=== PATIENT | female | born 1985 | race Caucasian/White ===

== ENCOUNTER 2021-02-01 11:43 | Outpatient (RCR) | payer OTHER, SELFPAY ==
[2020-12-12] MEDS: RHO(D) IMMUNE GLOBULIN 300 MCG/2 ML SYRINGE IM (14:11)
[2021-02-01 12:41] VITALS: BP 133/93; PULSE 89
--- NOTE | 2021-02-01 12:56 | PM.OBTRLD ---
OB - Triage/Final Diagnosis Visit Information Date of evaluation: 02/01/21 Reason for evaluation: decreased movement Comments/Additional reasons for admission: I have assessed the risk for this patient, Trice Yin, and determined that she would benefit from observation care. Evaluation Laboratory results: Laboratory Tests 12/11/20 12:53 Blood Type A Negative Antibody Screen Negative Screen TNP Baby's Blood Type TNP Baby's CONCEPCION TNP Doses of RhIg Required 1 Vital signs: Vital Signs - 24 hr 02/01/21 12:41 Pulse Rate 89 Blood Pressure [Left Arm] 133/93 H
== END 2021-02-12 08:35 | disposition home or self-care (01) ==
LOC: ANHOBOP 11:43
PROVIDERS: Visit Provider Obstetrics & Gynecology
DX: Z29.13 Encounter for prophylactic Rho(D) immune globulin (principal); O36.0190 Maternal care for anti-D [Rh] antibodies, unspecified trimester, not applicable or unspecified; Z3A.00 Weeks of gestation of pregnancy not specified
CPT/HCPCS: 36415; 59025; 85461; 90384; 96372; J2790

== ENCOUNTER 2021-02-06 17:27 | Inpatient (IN) | payer OTHER, SELFPAY ==
[2021-02-06] VITALS (13 sets, daily range): BP systolic 120–159; BP diastolic 91–103; PULSE 78–102; RESP 18; TEMP 36.8–36.9; BMI 36.8
--- NOTE | 2021-02-06 17:27 | LDADM ---
This patient, Trice Yin, was admitted to Labor/Delivery/Recovery 105 on 02/06/21 at 17:27. Plans for labor, pain management and were discussed with patient. Patient/family oriented to hospital policies and general routines including ID bracelet, bed and alarms, visiting hours, pain management, procedures, bathroom and other care routines, personal items, smoking policy, room service/diet and guest tray routines, security routines, and visiting hours. Patient/Family are encouraged to report perceived risks to care and to ask questions if they do not understand what they are told or what they should do. See OBIX for further documentation.
[2021-02-06 19:08] LABS: Basophils Percent Auto 0.4 % (0.2-1.2); Eosinophils Absolute Auto 0.2 K/mm3 (0-0.3); Eosinophils Percent Auto 1.9 % (0-4.4); Immature Granulocyte Absolute 0.04 K/mm3 (0.00-0.031); Immature Granulocyte Percent A 0.5 % (0-0.5); Lymphocytes Absolute Auto 1.85 K/mm3 (0.9-3.2); Lymphocytes Percent Auto 23.5 % (18.3-44.2); Mean Corpuscular HGB Conc 33.3 g/dl (32-36); Mean Corpuscular Hemoglobin 32.8 pg (26-34); Mean Corpuscular Volume 98.5 fl (80-100); Mean Platelet Volume 10.7 fl (7.4-10.4); Monocytes Absolute Auto 0.7 K/mm3 (0.1-0.6); Monocytes Percent Auto 8.4 % (2.6-8.5); Neutrophils Absolute Auto 5.1 K/mm3 (1.3-6.7); Neutrophils Percent Auto 65.3 % (45.5-73.1); Platelet Count Result 238 k/mm3 (150-375); Red Blood Count 3.96 M/mm3 (4.2-5.4); Red Cell Distribution Width 14.1 % (11.5-14.5); White Blood Count 7.9 K/mm3 (4.5-10.0)
[2021-02-06 19:11] LABS: Add Urine Microscopic? NO; Appearance Urine Clear (Clear); Bilirubin Urine Negative (Negative); Blood Urine Negative (Negative); Color Urine Yellow (Yellow); Glucose Urine UA Negative (Negative); Ketones Urine Negative (Negative); Leukocyte Esterase Ur Negative LEU/UL (NEGATIVE); Nitrate Urine Negative (Negative); Protein Urine Negative (Negative); Specific Grav Ur 1.013 (1.001-1.035); Urobilinogen Urine Negative mg/dL (<2.0)
[2021-02-06 19:41] LABS: Alanine Aminotransferase 15 U/L (4-35); Albumin Level 3.6 g/dL (3.5-5.1); Alkaline Phosphatase 133 U/L (38-126); Anion Gap 7 mmol/L (8-16); Aspartate Amino Transferase 19 U/L (14-36); Bilirubin,Total 0.3 mg/dL (0.2-1.3); Blood Urea Nitrogen 8 mg/dL (7-17); Calcium 9.6 mg/dL (8.4-10.2); Carbon Dioxide 19 mmol/L (22-30); Chloride 109 mmol/L (98-107); Estimated Glomerular Filt Rate > 60; Glucose 88 mg/dL (65-110); Sodium 135 mmol/L (137-145); Uric Acid 5.4 mg/dL (2.5-7.5)
[2021-02-06 19:44] LABS: Creatinine Urine 79.3 mg/dL; Total Protein Urine Random 12 mg/dL; Ur Ttl Prot Creatinine Ratio 0.15 mg/mg (0-0.20)
[2021-02-06] MEDS: DINOPROSTONE 10 MG VAG INSERT VAGINAL (22:04)
[2021-02-07] VITALS (184 sets, daily range): BP systolic 113–185; BP diastolic 59–108; PULSE 66–119; RESP 18; TEMP 36.4–37.1; O2SAT 89–100
--- NOTE | 2021-02-07 08:03 | WPDANESEPP ---
Anes - Eval Pre Procedure Procedure: labor epidural Date/Time: 02/07/21 08:03 Surgeon: alberta Preop Diagnosis: pain during labor Pre Op Diagnosis: R/O Labor Patient Data Age: 35 Gender: F Height: 1.75 m Weight: 113.2 kg Last Vital Signs Temp 36.6 C 02/07/21 07:30 Pulse 81 02/07/21 08:01 Resp 18 02/07/21 04:06 BP 153/84 H 02/07/21 08:01 Allergies Allergy/AdvReac Type Severity Reaction Status Date / Time gluten Allergy Intermediate Rash, Verified 06/17/20 09:37 digestive problems corn Allergy Mild Rash, Verified 06/17/20 09:37 digestive problems hydrocodone [From [place]] Allergy Rash Verified 06/17/20 09:37 morphine AdvReac Nausea Verified 01/09/21 13:52 Home Medications Medication Instructions Recorded Confirmed Type docosahexaenoic acid 200 mg capsule See Rx Instructions PO .COMPLEX 06/17/20 01/09/21 History cap magnesium aspartate-potassium 2 cap PO .COMPLEX cap 06/17/20 01/09/21 History aspartate 250 mg-250 mg capsule Laboratory Tests 02/06/21 02/06/21 02/06/21 18:50 18:50 18:50 WBC 7.9 K/mm3 K/mm3 (4.5-10.0) RBC 3.96 M/mm3 L M/mm3 (4.2-5.4) Hgb 13.0 g/dL g/dL (12.0-15.0) Hct 39.0 % % (37.0-47.0) MCV 98.5 fl fl (80-100) MCH 32.8 pg pg (26-34) MCHC 33.3 g/dl g/dl (32-36) RDW 14.1 % % (11.5-14.5) Plt Count 238 k/mm3 k/mm3 (150-375) MPV 10.7 fl H fl (7.4-10.4) Immature Gran % (Auto) 0.5 % % (0-0.5) Neut % (Auto) 65.3 % % (45.5-73.1) Lymph % (Auto) 23.5 % % (18.3-44.2) [place] % (Auto) 8.4 % % (2.6-8.5) Eos % (Auto) 1.9 % % (0-4.4) Baso % (Auto) 0.4 % % (0.2-1.2) Lymph # (Auto) 1.85 K/mm3 K/mm3 (0.9-3.2) [place] # (Auto) 0.7 K/mm3 H K/mm3 (0.1-0.6) Eos # (Auto) 0.2 K/mm3 K/mm3 (0-0.3) Baso # (Auto) 0.0 K/mm3 K/mm3 (0.0-0.1) Abs Immat Gran (auto) 0.04 K/mm3 H K/mm3 (0.00-0.031) Absolute Neuts (auto) 5.1 K/mm3 K/mm3 (1.3-6.7) Absolute Nucleated RBC 0.0 K/mm3 K/mm3 (0.0-0.012) Nucleated RBC % 0.0 % % (0.0-0.2) Sodium Potassium Chloride Carbon Dioxide Anion Gap BUN Creatinine Estim Creat Clear Calc Estimated GFR Glucose Uric Acid Calcium Total Bilirubin AST ALT Alkaline Phosphatase Total Protein Albumin Urine Color Yellow (Yellow) Urine Appearance Clear (Clear) Urine pH 6.0 (5.0-9.0) Ur Specific [place] 1.013 (1.001-1.035) Urine Protein Negative mg/dL mg/dL (Negative) Urine Glucose (UA) Negative mg/dL mg/dL (Negative) Urine Ketones Negative mg/dL mg/dL (Negative) Ur Blood (Man) Negative (Negative) Urine Nitrate Negative (Negative) Urine Bilirubin Negative (Negative) Urine Urobilinogen Negative mg/dL mg/dL (<2.0) Ur Leukocyte Esterase Negative JODI/UL JODI/UL (NEGATIVE) U Random Total Protein 12 mg/dL mg/dL Urine Creatinine 79.3 mg/dL mg/dL Protein/Creat Ratio 2 0.15 mg/mg mg/mg (0-0.20) RPR Blood Type Antibody Screen 02/06/21 02/06/21 02/06/21 18:50 21:48 22:48 WBC RBC Hgb Hct MCV MCH MCHC RDW Plt Count MPV Immature Gran % (Auto) Neut % (Auto) Lymph % (Auto) [place] % (Auto) Eos % (Auto) Baso % (Auto) Lymph # (Auto) [place] # (Auto)
[2021-02-07] MEDS: OXYTOCIN 30 UNITS/NS 500 ML 30 UNITS/500 ML BAG 6 UNITS IV CONT (09:42)
[2021-02-07] MEDS: LACTATED RINGERS 1,000 ML 125 ML IV CONT ×3 (09:42→22:00)
[2021-02-07 11:38] LABS: Rapid Plasma Reagin Non-Reactive (NonReactive)
--- NOTE | 2021-02-07 18:22 | WPDOBADMIT ---
Obstetrics - Admit Note Admission Note: admitted for elevated bps and term Induction of labor with cervidil. SROM this am. record reviewed. No pertinent additions to the history and/or any subsequent changes in the physical findings that are not consistent with the expected course of the were found. Additions to the history and/or subsequent changes in the physical findings follow. None.
[2021-02-07] MEDS: ONDANSETRON INJ 4 MG/2 ML VIAL IV PUSH (19:11)
[2021-02-08] VITALS (149 sets, daily range): BP systolic 96–185; BP diastolic 52–104; PULSE 81–167; RESP 16–18; TEMP 36.7–38.6; O2SAT 93–100
[2021-02-08] MEDS: AMPICILLIN 2 GM/NS 100 ML 2 GM/100 ML BAG IVPB (06:54)
[2021-02-08] MEDS: OXYTOCIN 30 UNITS/NS 500 ML 30 UNITS/500 ML BAG 125 UNITS IV CONT (08:29)
--- NOTE | 2021-02-08 08:32 | PM.OBPRVD ---
OB - Delivery Note Procedure Delivery date: 02/08/21 Intrapartal events: None Induction method: none Delivery augmentation: pitocin Delivery monitor: external FHT Route of delivery: Episiotomy description: None Laceration Description: Perineal - 2nd Degree Delivery repair: vicryl Specimen: No Quantitative Blood Loss (ml): 158 Anesthesia type: Epidural Disposition: floor Baby Date of : 02/08/21 Time of : 08:11 Weeks of gestation at delivery: 40 gender: Male Weight (pounds): 9 Weight (ounces): 2 presentation: vertex position: Right Occiput Anterior Placenta delivery description: Spontaneous cord vessel description: 3 Vessels and Around Body x3 score one minute: 6 score five minutes: 9
[2021-02-08] MEDS: IBUPROFEN 600 MG TABLET PO ×3 (09:26→22:23)
[2021-02-08] MEDS: BENZOCAINE 20% AER SPR (*SP) 56 GM CAN 1 SPRAY TOPICAL (09:26)
[2021-02-08] MEDS: WITCH HAZEL 40 PADS 1 PAD TOPICAL (09:26)
[2021-02-08] MEDS: ceFAZolin 2 GM/D5W 50 ML 2 GM/50 ML BAG IVPB (09:27)
--- NOTE | 2021-02-08 11:24 | OBPPTRN ---
Patient transferred to post room #278 via wheelchair. Support person present. Oriented to unit, room, information board, rooming in, admission packet and security measures. Patient verbalizes understanding. PT received instructions per one to one discussion, mom baby care guide and demonstration. PT shows no barriers to learning and she and spouse both recipients of such instructions.
[2021-02-08] MEDS: ACETAMINOPHEN 325 MG TABLET 650 MG PO ×2 (13:30→21:42)
[2021-02-08] MEDS: LANOLIN (LANSINOH) 7.5 GM CREAM 1 APPLIC TOPICAL (15:29)
[2021-02-08] MEDS: DOCUSATE SODIUM 100 MG CAPSULE PO (16:28)
[2021-02-09] VITALS: BP 115/68; PULSE 102; RESP 16; TEMP 36.8; O2SAT 98
[2021-02-09] MEDS: ACETAMINOPHEN 325 MG TABLET 650 MG PO ×4 (03:48→23:26)
[2021-02-09] MEDS: IBUPROFEN 600 MG TABLET PO ×4 (03:57→23:27)
[2021-02-09 04:00] VITALS: BP 138/84; PULSE 89; RESP 16; TEMP 36.9; O2SAT 97
[2021-02-09 04:40] LABS: Hematocrit 30.8 % (37.0-47.0); Hemoglobin 10.2 g/dL (12.0-15.0)
--- NOTE | 2021-02-09 08:11 | PM.OBPNVD ---
OB - PN: Subj Subjective Date/time seen: 02/09/21 08:11 Patient comments: no complaints and pain well controlled baby status: doing well and nursing well OB - PN: Obj Data Labs CBC & Chem 7: 02/09/21 03:47 02/06/21 18:50 Labs: Laboratory Results - last 24 hr 02/09/21 03:47 Hgb 10.2 L Hct 30.8 L OB - PN A/P Plan day: 1 Plan: routine care Time Spent With Patient Time: Total time spent is greater than 50% in coordination of care (as documented) at patient's floor/unit and/or counseling patient: Time with patient: less than 15 minutes Review of Systems Review of Systems: All systems reviewed & are unremarkable except as noted in HPI and below Exam Const: General: no acute distress Eyes: General: appearance normal, both eyes and all related structures Neck: Neck: supple and no JVD Thyroid: thyroid normal Resp: Effort & Inspection: normal respiratory effort Auscultation: clear to auscultation bilaterally Cardio: Rate: regular rate Rhythm: regular rhythm GI: Inspection: non-distended GI Palp: Yes Soft to palpation, No Tenderness to palpation present (GI) and No Guarding due to palpation present (GI) Auscultation: normal bowel sounds : General: Yes bladder normal to palpation External Female Exam: normal external appearance Speculum Exam - Vagina: normal vaginal discharge and No vaginal bleeding Speculum Exam - Cervix: nontender Bimanual exam- vagina & uterus: bladder normal to palpation and No Cervical tenderness present OB/external & speculum: No vaginal bleeding Skin: General skin exam: no rashes or lesions noted Extrem: General: normal to inspection and no edema Psych: Mental Status: mental status grossly normal Affect: normal affect
--- NOTE | 2021-02-09 08:16 | WPDANLDPN2 ---
Anes-Prog Note L&D Date/Time: 02/09/21 08:16 Neuro status: Neuro function grossly intact. Cardiovascular status: normal Respiratory status: normal Airway patency: baseline Mental status: baseline Post-Op hydration status: normal Vital Signs: Last Vital Signs Temp 36.9 C 02/09/21 04:00 Pulse 89 02/09/21 04:00 Resp 16 02/09/21 04:00 BP 138/84 02/09/21 04:00 Pulse Ox 97 02/09/21 04:00 Pain score (VAS): 3 I/O: Intake & Output 02/08/21 02/09/21 02/09/21 23:59 07:59 15:59 Intake Total 500 700 Output Total 600 600 Balance -100 100 Post-procedural complaints: none Patient feedback: Patient satisfied with anesthetic care.
--- NOTE | 2021-02-09 08:17 | WPDANLDPN2 ---
Anes-Prog Note L&D Date/Time: 02/09/21 08:17 Comfortable throughout: labor and delivery Neuraxial method: epidural Epidural/Spinal procedure site: clean & non-tender Neuro status: Neuro function grossly intact. Cardiovascular status: normal Respiratory status: normal Airway patency: baseline Mental status: baseline Post-Op hydration status: normal Vital Signs: Last Vital Signs Temp 36.9 C 02/09/21 04:00 Pulse 89 02/09/21 04:00 Resp 16 02/09/21 04:00 BP 138/84 02/09/21 04:00 Pulse Ox 97 02/09/21 04:00 Pain score (VAS): 3 I/O: Intake & Output 02/08/21 02/09/21 02/09/21 23:59 07:59 15:59 Intake Total 500 700 Output Total 600 600 Balance -100 100 Post-procedural complaints: none Patient feedback: Patient satisfied with anesthetic care.
[2021-02-09] MEDS: MULTIVIT/MIN/PREN/FOL AC/IRON TABLET 1 TAB PO (09:24)
[2021-02-09] MEDS: DOCUSATE SODIUM 100 MG CAPSULE PO ×2 (09:24→17:00)
[2021-02-09 09:30] VITALS: BP 133/88; PULSE 86; RESP 18; TEMP 36.5; O2SAT 97
--- NOTE | 2021-02-09 09:30 | PC.NURSE ---
PT introductions made and plan of care discussed per post , daily care activities, pain management, breast feeding. PT receives instructions per one to one discussion, mom baby care guide and demonstration per this shift. No barriers identified. PT and spouse both received instructions and verbalized understanding of such care.
[2021-02-09] MEDS: WITCH HAZEL 40 PADS 1 PAD TOPICAL (11:45)
[2021-02-09] MEDS: BENZOCAINE 20% AER SPR (*SP) 56 GM CAN 1 SPRAY TOPICAL (11:45)
[2021-02-09 13:30] VITALS: BP 130/80; PULSE 82; RESP 18; TEMP 36.6; O2SAT 97
[2021-02-09 17:00] VITALS: BP 111/53; PULSE 92; RESP 18; TEMP 36.6; O2SAT 100
[2021-02-09] MEDS: DIBUCAINE 1% OINTMENT 30 GM TUBE 1 APPLIC TOPICAL (17:16)
[2021-02-09 20:00] VITALS: BP 128/79; PULSE 74; RESP 18; TEMP 37.1; O2SAT 96
[2021-02-10 00:20] VITALS: BP 138/81; PULSE 78; RESP 18; TEMP 36.6; O2SAT 98
[2021-02-10 04:15] VITALS: BP 112/62; PULSE 77; RESP 18; TEMP 36.8; O2SAT 98
[2021-02-10] MEDS: ACETAMINOPHEN 325 MG TABLET 650 MG PO (05:48)
[2021-02-10] MEDS: IBUPROFEN 600 MG TABLET PO (05:49)
[2021-02-10 07:35] VITALS: BP 132/84; PULSE 75; RESP 16; TEMP 37; O2SAT 97
--- NOTE | 2021-02-10 08:58 | PM.OBPNVD ---
OB - PN: Subj Subjective Date/time seen: 02/10/21 08:58 Narrative: Pain OK. Would like to go home. OB - PN: Obj Data Labs CBC & Chem 7: 02/09/21 03:47 02/06/21 18:50 OB - PN A/P Plan Comments: A: PPD#2, doing well. P: Home to f/u 6 weeks. Exam Psych: Other: AVSS ABD soft, nontender, fundus firm EXT nontender
[2021-02-10] MEDS: MULTIVIT/MIN/PREN/FOL AC/IRON TABLET 1 TAB PO (09:10)
--- NOTE | 2021-02-10 10:25 | PC.NURSE ---
Observed mother is able to independently latch with appropriate positioning/alignment. She denies any nipple discomfort, is feeding as required and waking infant to feed if needed. nurses eagerly with long steady rhythmic draws and occasional swallowing is noted. Advised to stimulate to keep awake and nursing effectively. has had at least 8 effective feedings in the past 24 hours, and is currently meeting outcomes for weight, output, jaundice and feeding frequencies. Mother states she feels confident to continue effective at home. Reviewed transition to breast milk, signs of adequate intake, and engorgement/relief. Instructed to call ICP if intake/output less than required. Reviewed regular medications mother is taking. Information provided per Negin. Reviewed community resources on the [facility] website and in the Mom/Baby guide. Information on outpatient services provided. Mother has no further questions at this time.
--- NOTE | 2021-02-10 11:02 | PC.NURSE ---
Patient viewed the discharge video Mother & Baby Care, The First Two Weeks . Patient was given the opportunity and encouraged to ask questions. Patient verbalized understanding of information shared and has been given the mother/baby guide for home reference.
[2021-02-10] MEDS: DOCUSATE SODIUM 100 MG CAPSULE PO (11:09)
--- NOTE | 2021-02-10 12:58 | PM.OBDSVD ---
DS: Admitting Diagnosis Admitting Diagnosis Labor at term DS: Discharge Diagnosis Discharge Diagnosis (1) (normal spontaneous vaginal delivery): Code(s): O80 - Encounter for full-term uncomplicated delivery Status: Acute OB - DS: Summary OB Procedures : None OB Procedures Intrapartum: Spontaneous Vag Delivery OB Procedures: : None Discharge Plan Discharge Attending physician on discharge: Boyd Capone Discharging Clinician: Boyd Capone Patient Disposition: Home, Self-Care Activity: pelvic rest Diet: regular Discharge Instructions: Education: Mom and Baby Guide Given to: Mother Follow-Up: Call your delivering provider's office for an appointment to be seen in: 6 Weeks Mom and baby should come to the [facility] for the follow-up appointment. Appointment Date/Time: February 12, 2021 at 8:00 am What to expect at your follow-up visit: Physical Assessment Call [phone] if you are unable to keep your appointment time. BREAST CARE: * Wear a snug supportive bra. * For engorgement discomfort: Breast Feeding: * Apply warm moist washcloths * Express milk as needed to relieve engorgement * Wear loose clothing Bottle Feeding: * May apply ice packs * For sore nipples: * Identify correct latch-on * Apply warm moist washcloths before and after nursing * Air dry nipples after nursing * May apply Lansinoh cream to nipples ABDOMINAL INCISION: (if applicable) * Allow incision to air dry * Do NOT use lotions for powders on your incision * When showering, allow soap and water to run over the incision, but do not wash incision EPISIOTOMY/PERINEAL CARE: * Until bleeding stops, use your corazon bottle after urinating * Change your pad frequently throughout the day * You may take sitz baths several times a day (fill your bathtub with warm water and soak for 20 minutes.) Do NOT bathe in the water * No tub baths until seen by your physician - You may shower ACTIVITY: * Rest as much as possible. * Do not exercise or lift anything heavier than your baby (such as laundry or other children.) * Avoid stairs or driving as much as possible. * Do not put anything into the vagina. No douching, tampons, or sexual activity until seen by physician. NOTIFY PHYSICIAN IF YOU HAVE ANY QUESTIONS OR IF ANY OF THE FOLLOWING SYMPTOMS OCCUR: * If your episiotomy or incision becomes red, swollen, or more painful than what you have experienced in the hospital. * If your vaginal bleeding becomes foul smelling. * If your vaginal bleeding becomes more heavy than a period or if your bleeding changes from pink to bright red. However, you may pass an occasional walnut-sized clot once or twice for the first week . * If you experience a sharp, shooting pain in you calves. * If you discover a hard, reddened area on your breast or if you experience flu-like symptoms. DIET: * Eat regular, well-balanced meals. * Drink plenty of fluids daily. If , drink to thirst.Call or return if temperature above 100.4? F, increased abdominal pain, increased vaginal bleeding or any new problems. Stand Alone Forms: General Discharge Information Follow-up/Referrals: Boyd Capone MD [Physician] - 6 Weeks Discharge Medications: New ibuprofen 600 mg tablet 600 mg PO Q6H PRN (Reason: cramps) Qty: 30 RF: 0 Continued DHA 200 mg capsule See Rx Instructions PO .COMPLEX RF: 0 magnesium, potassium aspartate 250-250 mg capsule 2 cap PO .COMPLEX RF: 0 Date of admission: 02/06/21 17:27 Primary Care Provider: PHYSICIAN,COM WRITER Admitting Provider: Boyd Capone Attending physician on admission: Boyd Capone Condition: Stable
[2021-02-12 08:08] VITALS: BP 153/96; PULSE 75; RESP 20; TEMP 37; O2SAT 97
== END 2021-02-10 12:20 | disposition home or self-care (01) | DRG 806 ==
LOC: ANHLDR 02-07 08:44 → ANHOB2 02-08 11:28
PROVIDERS: Obstetrics & Gynecology; Admitting Provider Obstetrics & Gynecology; Visit Provider Obstetrics & Gynecology
DX: O13.4 Gestational [pregnancy-induced] hypertension without significant proteinuria, complicating childbirth (principal); O75.2 Pyrexia during labor, not elsewhere classified; Z37.0 Single live birth; O70.1 Second degree perineal laceration during delivery; O69.81X0 Labor and delivery complicated by cord around neck, without compression, not applicable or unspecified; O77.0 Labor and delivery complicated by meconium in amniotic fluid; Z3A.40 40 weeks gestation of pregnancy
CPT/HCPCS: 36415; 80053; 81003; 82570; 84112; 84156; 84550; 85014; 85018; 85025; 86592; 86850; 86900; 86901; 87086; 87088; A9270; J0131; J0290; J0690; J2405; J2590; J2795; J7120

== ENCOUNTER 2021-02-27 15:23 | Outpatient (RCR) | payer OTHER, SELFPAY ==
--- NOTE | 2021-02-27 16:00 | PC.NURSE ---
[id number] OUT 1100 HISTORY: Pt. delivered at [facility] at 39 weeks. had no complications after delivery. Mother had no complications after delivery. is now 18 days old. appears to be well cared for. has been seen by ICP as scheduled. Infant last seen by ICP at 2 weeks. Mother reports: Currently at 8 wets per day and 4 brown pasty stools per day. weight: 9#2 Last Weight:9#12 at 2 weeks Mother was able to latch independently, was waking for feedings nursing sleepily needing constant stimulation to nurse. had increasing jaundice and weight loss at discharge. ICP suggested supplementation after breastfeedings. Infant lost more weight and jaundice increased at follow up, and supplementation was increased. Mother initiated pumping after each feeding to stimulate milk supply. Infant is put to breast each feeding, mother reports he is less interested in . Infant will nurse from 3-15 minutes, frequently he plays at nursing and is not consistent. Mother will supplement 2-3 oz after each feeding. Mother has pumped 15 minutes after each feeding since day 4, she is using a double electric Medela. Mother pumps 1 oz per day collectively. Recently infant has began to pull back during feedings and clamp down on nipple with fussiness and refusing to return to breast. Mother states she is very tired and having difficulties keeping up with current feeding plan. Mother wishes: Increase milk supply and to nurse at the breast longer without issue. OBSERVATION: Tongue is able to move freely past gum ridge, both lips flange easily. Mother has everted nipples with skin intact no redness, blisters, scabbing or abrasions noted. Mother is able to latch infant to breast in cradle position. Latch is slightly shallow. Suggested mother use cross cradle to assist with guided latch and to assist with maintaining latch and not allow to slip down to shallow latch. Infant nurses in short bursts of eager rhythmic draw minimal swallowing noted, then begins to slow with short chewy sucks with pulling, clamping on breast and then releases latch. Demonstrated breast compressions to assist with milk flow to entice to continue to nurse. made no change in nursing pattern. Mother will attempt to latch is fussy then refuses, mother will switch to other breast with repeat of same. nursed approximately 15 min with 2-3 of effective sucking. Discussed infant may stop nursing with lack of milk flow. Mother states she is concerned is accustom to formula after nursing and is not working at breast. Advised supplementation is needed at this time, as breastmilk is not available. Mother wishes to use the Supplemental Nursing System (SNS) 3 oz of formula to SNS, and attached to mother, infant was able to latch and had an increase of effective nursing. was at breast 15 minutes and then switched to other breast for 15 minutes. nursed effectively for aprox 15 minutes of feeding with 1.5 oz from SNS. Mother did not feel the SNS was an option for her with the difficulties of maintaining infant latch and keeping infant awake and nursing. Discussed milk supply and possibilities of increasing supply to not use formula, advised mother milk supply may increase slightly not likely to increase to discontinue supplementation. Mother states she is unable to continue current program of 20 minutes, bottle feeding and pumping for 15 minutes. Several options discussed. Mother will put infant to breast each feeding and then supplement as much as he desires. Mother will call with further questions or concerns.
== END 2021-04-01 13:37 | disposition home or self-care (01) ==
LOC: ANHOBOP 15:23
PROVIDERS: Visit Provider Pediatrics
DX: Z39.1 Encounter for care and examination of lactating mother (principal)
CPT/HCPCS: 99212; G0463

== ENCOUNTER 2023-12-29 11:06 | Emergency (ER) | payer OTHER, SELFPAY ==
--- NOTE | ~2023-12-29 | CT_ITS ---
EXAMINATION: CT abdomen pelvis w con DATE: 12/29/2023 13:08 INDICATION: Generalized abdominal pain. TECHNIQUE: Computed tomography (CT) of the abdomen and pelvis was performed with 100 mL Omnipaque 350 intravenous contrast. Automated exposure control and iterative reconstruction technique were employe d. The dose-length product was 630.61 mGy-cm. COMPARISON: None. FINDINGS: The visualized portions of the lung bases demonstrates mild atelectasis. No pleural effusio n. The heart size is normal. No pericardial effusion. There is a 5.9 cm hyperenhancing mass with cent ral scar in left hepatic lobe. There is a 7 mm cyst in the liver. The gallbladder, spleen, pancreas, adrenal glands, and kidneys are normal. There are no dilated loops of bowel. The appendix is normal. No visualized. There are no pathologically enlarged lymph nodes. There is no free intraperitoneal flu id. There is mild thoracic and lumbar spondylosis. IMPRESSION: 1. 5.9 cm liver mass, which may be focal nodular hyperplasia, a hemangioma, or less likely hepatocell ular carcinoma. Abdomen MRI without and with contrast is recommended. Reviewed, dictated and finalized at location A. IMPRESSION: 1. 5.9 cm liver mass, which may be focal nodular hyperplasia, a hemangioma, or less likely hepatocellular carcinoma. Abdomen MRI without and with contrast is recommended.
[2023-12-29 11:38] VITALS: BP 132/92; PULSE 84; RESP 17; TEMP 36.4; O2SAT 99
[2023-12-29 12:35] LABS: Basophils Absolute Auto 0.1 K/mm3 (0.0-0.1); Basophils Percent Auto 0.9 % (0.2-1.2); Eosinophils Absolute Auto 0.5 K/mm3 (0-0.3); Eosinophils Percent Auto 9.9 % (0-4.4); Hematocrit 41.7 % (37.0-47.0); Hemoglobin 14.1 g/dL (12.0-15.0); Lymphocytes Absolute Auto 2.41 K/mm3 (0.9-3.2); Lymphocytes Percent Auto 44.2 % (18.3-44.2); Mean Corpuscular HGB Conc 33.8 g/dl (32-36); Mean Corpuscular Hemoglobin 31.3 pg (26-34); Mean Corpuscular Volume 92.5 fl (80-100); Mean Platelet Volume 9.5 fl (7.4-10.4); Monocytes Absolute Auto 0.5 K/mm3 (0.1-0.6); Monocytes Percent Auto 8.3 % (2.6-8.5); Neutrophils Percent Auto 36.7 % (45.5-73.1); Platelet Count Result 279 k/mm3 (150-375); Red Blood Count 4.51 M/mm3 (4.2-5.4); Red Cell Distribution Width 12.5 % (11.5-14.5); White Blood Count 5.5 K/mm3 (4.5-10.0)
[2023-12-29 12:37] LABS: Appearance Urine Clear (Clear); Bilirubin Urine Negative (Negative); Blood Urine Negative (Negative); Color Urine Yellow (Yellow); Glucose Urine UA Negative (Negative); Ketones Urine Negative (Negative); Leukocyte Esterase Ur Negative LEU/UL (Negative); Nitrate Urine Negative (Negative); Protein Urine Negative (Negative); Specific Grav Ur 1.007 (1.001-1.035); Urobilinogen Urine 0.2 mg/dL (<2.0); pH Urine 6.5 (5.0-9.0)
[2023-12-29 12:40] LABS: Add Urine Microscopic? NO
[2023-12-29 12:45] LABS: Alanine Aminotransferase 31 U/L (6-35); Albumin Level 4.8 g/dL (3.5-5.1); Alkaline Phosphatase 60 U/L (38-126); Anion Gap 7 mmol/L (4-12); Aspartate Amino Transferase 26 U/L (14-36); Bilirubin,Total 0.7 mg/dL (0.2-1.3); Blood Urea Nitrogen 8 mg/dL (7-17); Calcium 9.2 mg/dL (8.4-10.2); Carbon Dioxide 25 mmol/L (22-30); Chloride 106 mmol/L (98-107); Estimated CRCL calculation 99 ml/min; Estimated Glomerular Filt Rate > 60; Glucose 80 mg/dL (65-110); Lipase 67 U/L (23-300); Potassium 4.3 mmol/L (3.4-5.0); Sodium 138 mmol/L (137-145)
--- NOTE | 2023-12-29 12:48 | ED.ABDPAIN ---
HPI - Abdominal Pain General Chief Complaint: Abdominal Pain Stated Complaint: Constipation Time Seen by Provider: 12/29/23 12:06 Related Data Home Medications Medication Instructions Recorded Confirmed docosahexaenoic acid 200 mg See Rx Instructions PO .COMPLEX 06/17/20 01/09/21 capsule ( DHA) magnesium aspartate-potassium 2 cap PO .COMPLEX 06/17/20 01/09/21 aspartate 250 mg-250 mg capsule Allergies Allergy/AdvReac Type Severity Reaction Status Date / Time hydrocodone [From [place]] Allergy Rash Verified 12/29/23 11:57 morphine AdvReac Nausea Verified 12/29/23 11:57 [facility] Past Medical History Medical History IBS (irritable bowel syndrome) Migraines Surgical History Surgical History History of hand surgery 2016, Left hand finger surgery [place] teeth extracted Family History Family History Grandparent Breast cancer Diabetes mellitus grandmother Father Carcinoma of colon Hypertension Cerebrovascular accident Mother Diabetes mellitus Sibling Acute myocardial infarction brother Cerebrovascular accident brother Social History Social History Smoking status: Former smoker Alcohol intake: former Substance use: never Substance use type: marijuana Last use: summer Gender identity (if verbalized by the patient): Female Spiritual care concerns: No Course Vital Signs Vital signs: Vital Signs Temperature 36.4 C 12/29/23 11:38 Pulse Rate 84 12/29/23 11:38 Respiratory Rate 17 12/29/23 11:38 Blood Pressure 132/92 H 12/29/23 11:38 Pulse Oximetry 99 12/29/23 11:38 Oxygen Delivery Room Air 12/29/23 11:38 Temperature 36.4 C 12/29/23 11:38 Pulse Rate 84 12/29/23 11:38 Respiratory Rate 17 12/29/23 11:38 Blood Pressure 132/92 H 12/29/23 11:38 Pulse Oximetry 99 12/29/23 11:38 Oxygen Delivery Room Air 12/29/23 11:38 MDM - Abdominal Pain Lab Data 12/29/23 12:29 12/29/23 12:29 Labs: Lab Results 12/29/23 Range/Units 12:29 WBC 5.5 (4.5-10.0) K/mm3 RBC 4.51 (4.2-5.4) M/mm3 Hgb 14.1 D (12.0-15.0) g/dL Hct 41.7 (37.0-47.0) % MCV 92.5 (80-100) fl MCH 31.3 (26-34) pg MCHC 33.8 (32-36) g/dl RDW 12.5 (11.5-14.5) % Plt Count 279 (150-375) k/mm3 MPV 9.5 (7.4-10.4) fl Immature Gran % (Auto) 0.0 (0-0.5) % Neut % (Auto) 36.7 L (45.5-73.1) % Lymph % (Auto) 44.2 (18.3-44.2) % [place] % (Auto) 8.3 (2.6-8.5) % Eos % (Auto) 9.9 H (0-4.4) % Baso % (Auto) 0.9 (0.2-1.2) % Lymph # (Auto) 2.41 (0.9-3.2) K/mm3 [place] # (Auto) 0.5 (0.1-0.6) K/mm3 Eos # (Auto) 0.5 H (0-0.3) K/mm3 Baso # (Auto) 0.1 (0.0-0.1) K/mm3 Abs Immat Gran (auto) 0.00 (0.00-0.031) K/mm3 Absolute Neuts (auto) 2.0 (1.3-6.7) K/mm3 Absolute Nucleated RBC 0.000 (0.0-0.012) K/mm3 Nucleated RBC % 0.0 (0.0-0.2) % Sodium 138 (137-145) mmol/L Potassium 4.3 (3.4-5.0) mmol/L Chloride 106 (98-107) mmol/L Carbon Dioxide 25 (22-30) mmol/L Anion Gap 7 (4-12) mmol/L BUN 8 (7-17) mg/dL Creatinine 0.70 (0.7-1.0) mg/dL Estim Creat Clear Calc 99 ml/min Estimated GFR > 60 (59 - ) Glucose 80 (65-110) mg/dL Calcium 9.2 (8.4-10.2) mg/dL Total Bilirubin 0.7 (0.2-1.3) mg/dL AST 26 (14-36) U/L ALT 31 (6-35) U/L Alkaline Phosphatase 60 (38-126) U/L Total Protein 8.0 (6.3-8.2) g/dL Albumin 4.8 (3.5-5.1) g/dL Lipase 67 (23-300) U/L Urine Color Yellow (Yellow) Urine Appearance Clear (Clear) Urine pH 6.5 (5.0-9.0) Ur Specific [place] 1.007 (1.001-1.035) Urine Protein Negative (Negative) mg/dL Urine Glucose (UA) Negative (Negative) mg/dL Urine Ketones Negative (N
[2023-12-29 14:09] VITALS: BP 142/88; PULSE 73; RESP 16; O2SAT 100
== END 2023-12-29 14:13 | disposition home or self-care (01) ==
PROVIDERS: Emergency Medicine; Emergency Provider Nurse Practitioner Family; PCP Obstetrics & Gynecology
DX: R10.9 Unspecified abdominal pain (principal); K58.9 Irritable bowel syndrome, unspecified; Z87.891 Personal history of nicotine dependence; R16.0 Hepatomegaly, not elsewhere classified
CPT/HCPCS: 36415; 74177; 80053; 81003; 81025; 83690; 85025; 99284; Q9967

== ENCOUNTER 2024-01-25 07:51 | Outpatient (CLI) | payer OTHER, SELFPAY ==
--- NOTE | ~2024-01-25 | MR_ITS ---
EXAMINATION: MR abdomen wo/w con DATE: 01/25/2024 09:11 INDICATION: Abnormal CT with 5.9 cm liver mass TECHNIQUE: Magnetic resonance imaging (MRI) of the abdomen was performed without and with 17 mL Multi vidhya intravenous contrast. Sequences included coronal T2-weighted SS-FSE, coronal and axial FS 2D-F IESTA, axial STIR FSE, axial T2-weighted SS-FSE, axial T2-weighted FS SS-FSE, axial diffusion-weighte d SE, axial dual-echo T1-weighted FSPGR, and axial and coronal T1-weighted LAVA. Postcontrast axial T 1-weighted LAVA images were obtained in a time course. Postcontrast coronal T1-weighted LAVA images w ere obtained. COMPARISON: CT dated 12/29/2023 FINDINGS: Heart size is normal. No pericardial or pleural effusion. 6.1 x 5.8 cm mass in segment 2 of the liver which is mildly T1 hypointense and mildly T2 hyperintense. The mass demonstrates arterial phase enha ncement with a central stellate hypoenhancing fibrous scar which is T1 hypointense and T2 hyperintens e on precontrast imaging which demonstrates more avid delayed enhancement in the surrounding mass whi ch itself remains enhancing peripheral to the surrounding liver parenchyma on the 5 and 10 minute del ayed images. Signal and enhancement pattern are classic for focal nodular hyperplasia. There is an 8 mm T2 hyperintense hemangioma in the right hepatic lobe which demonstrates characteristic pattern of peripheral discontiguous puddling of contrast on the early arterial phases which fills in on the keerthi yed images. Gallbladder, spleen, pancreas, bilateral adrenal glands and kidneys are normal. Visualize d portions of bowels are unremarkable. No pathologically enlarged abdominal lymphadenopathy. Bones ar e unremarkable with normal marrow signal throughout. IMPRESSION: 1. 6.1 cm mass in segment 2 of the liver with signal and enhancement pattern most consistent with foc al nodular hyperplasia. In addition there is an 8 mm hemangioma in the right hepatic lobe. Reviewed, dictated and finalized at location A. IMPRESSION: 1. 6.1 cm mass in segment 2 of the liver with signal and enhancement pattern mo st consistent with focal nodular hyperplasia. In addition there is an 8 mm bertha ngioma in the right hepatic lobe.
== END 2024-01-25 07:52 ==
PROVIDERS: PCP Obstetrics & Gynecology; Visit Provider Obstetrics & Gynecology
DX: R16.0 Hepatomegaly, not elsewhere classified (principal); R93.89 Abnormal findings on diagnostic imaging of other specified body structures
CPT/HCPCS: 74183; A9577

== ENCOUNTER 2024-03-14 10:48 | Outpatient (CLI) | payer OTHER, SELFPAY ==
--- NOTE | ~2024-03-14 | XR_ITS ---
Supine and upright views of the abdomen Clinical history: Constipation Findings: Bowel gas pattern is nonspecific. Large stool burden noted. No evidence for obstruction or free air. No abnormal mass lesion or calcification is seen. Osseous structures are intact. Impression: Large stool burden, compatible with constipation. Reviewed, dictated and finalized at location . Impression: Large stool burden, compatible with constipation.
[2024-03-14 11:36] LABS: CRP < 0.5 mg/dL (<1.0)
[2024-03-14 11:52] LABS: Erythrocyte Sedimentation Rate 19 mm/hr (0-20)
[2024-03-16 17:28] LABS: Almond (F20) IgE <0.10 kU/L; Cashew Nut (F202) IgE <0.10 kU/L; Cashew Nut (F202) IgE Class 0; Codfish (F3) IgE <0.10 kU/L; Codfish (F3) IgE Class 0; Cow's Milk (F2) IgE <0.10 kU/L; Cow's Milk (F2) IgE Class 0; Egg White (F1) IgE <0.10 kU/L; Egg White (F1) IgE Class 0; Hazelnut (F17) IgE <0.10 kU/L; Hazelnut (F17) IgE Class 0; Peanut (F13) IgE <0.10 kU/L; Peanut (F13) IgE Class 0; Salmon (F41) IgE <0.10 kU/L; Salmon (F41) IgE Class 0; Scallop (F338) IgE <0.10 kU/L; Scallop (F338) IgE Class 0; Sesame Seed <0.10 kU/L; Shrimp (F24) IgE <0.10 kU/L; Soybean (F14) IgE <0.10 kU/L; Soybean (F14) IgE Class 0; Tuna (F40) <0.10 kU/L; Tuna (F40) Class 0; Walnut (F256) IgE <0.10 kU/L; Walnut (F256) IgE Class 0; Wheat (F4) IgE <0.10 kU/L; Wheat (F4) IgE Class 0
== END 2024-03-14 10:49 | disposition home or self-care (01) ==
PROVIDERS: PCP Obstetrics & Gynecology; Visit Provider Nurse Practitioner
DX: R19.4 Change in bowel habit (principal); R10.9 Unspecified abdominal pain; K62.5 Hemorrhage of anus and rectum
CPT/HCPCS: 36415; 74018; 84443; 85652; 86003; 86140

== ENCOUNTER 2024-04-06 11:35 | Day surgery (SDC) | payer OTHER, SELFPAY ==
[2024-03-16 10:21] VITALS: BMI 28.3
[2024-03-29 09:11] VITALS: BMI 26.4
[2024-04-06 12:08] VITALS: BMI 28.0
[2024-04-06 12:12] VITALS: BP 111/73; PULSE 70; RESP 14; TEMP 36.7; O2SAT 100
[2024-04-06] MEDS: LACTATED RINGERS 1,000 ML 150 ML IV CONT (12:24)
--- NOTE | 2024-04-06 12:27 | WPDHPUPDATE1 ---
History and Physical Update Update Date/Time: 04/06/24 12:27 History and Physical has been reviewed, including an updated exam of the patient. There are NO changes in the patient's condition. Risks, benefits, and alternatives have been discussed and questions answered. Patient agrees to proceed with procedure.
--- NOTE | 2024-04-06 12:29 | WPDANESEPPF ---
Anes - Initial Pre Proc Eval Procedure: Operation Date: 04/06/24 13:00 Proposed Procedures p Diagnostic Colonoscopy - Darell Elizondo MD Date/Time: 04/06/24 12:29 Surgeon: Darell Elizondo MD Pre Op Diagnosis: Chg.in Bowel Habit.Constipation,unspec.Abdominal Patient Data Age: 39 Gender: F Height: 1.75 m Weight: 86 kg Last Vital Signs Temp 36.7 C 04/06/24 12:12 Pulse 70 04/06/24 12:12 Resp 14 04/06/24 12:12 BP 111/73 04/06/24 12:12 Pulse Ox 100 04/06/24 12:12 O2 Del Method Room Air 04/06/24 12:12 Allergies Allergy/AdvReac Type Severity Reaction Status Date / Time hydrocodone [From [place]] Allergy Rash Verified 04/06/24 11:58 morphine AdvReac Nausea Verified 04/06/24 11:58 Home Medications Medication Instructions Recorded Confirmed Type magnesium aspartate-potassium 2 cap PO .COMPLEX 06/17/20 04/06/24 History aspartate 250 mg-250 mg capsule ibuprofen 600 mg tablet 600 mg PO Q6H PRN cramps #30 tabs 02/10/21 04/06/24 Rx Patient hx anesthesia problems: none Family hx anesthesia problems: none Results Review: All pre-operative results and documents have been reviewed as part of the pre-operative evaluation. [facility] Past Medical History Medical History IBS (irritable bowel syndrome) Migraines Surgical History Surgical History History of hand surgery 2017, Left hand finger surgery [place] teeth extracted Family History Family History Grandparent Breast cancer Diabetes mellitus grandmother Father Carcinoma of colon Hypertension Cerebrovascular accident Mother Diabetes mellitus Sibling Acute myocardial infarction brother Cerebrovascular accident brother Social History Social History Smoking status: Former smoker Alcohol intake: current Alcohol use details: 0-2 drinks per week Substance use: never Substance use type: does not use Last use: summer Living arrangements: with family Gender identity (if verbalized by the patient): Female Spiritual care concerns: No Anes - Eval Final PreProcedure Day of Procedure 04/06/24 12:29 Patient weight: overweight Heart: regular rate and rhythm Lungs: clear to auscultation Airway: Mallampati scale class II Neurological: alert and oriented Last oral intake: >/= 8 hours ASA classification: II Emergent: no Anesthetic plan: proceed Anesthesia type and monitoring: general GIVS and standard monitoring Results Review: All pre-operative results and documents have been reviewed as part of the pre-operative evaluation. Informed Consent: The patient's anesthetic plan and its attendant risks and benefits were discussed with the patient/family/POA. Questions were solicited and answers provided to the satisfaction of the patient/family/POA.
[2024-04-06 14:07] VITALS: BP 107/66; PULSE 84; RESP 15; O2SAT 98
--- NOTE | 2024-04-06 14:16 | WPDANESPN ---
Anes - Prog Note Post-Op Date/Time: 04/06/24 14:16 Cardiovascular status: normal Respiratory status: normal Airway patency: baseline Mental status: baseline Post-Op hydration status: normal Vital Signs: Last Vital Signs Temp 36.7 C 04/06/24 12:12 Pulse 84 04/06/24 14:07 Resp 15 04/06/24 14:07 BP 107/66 04/06/24 14:07 Pulse Ox 98 04/06/24 14:07 O2 Del Method Room Air 04/06/24 14:07 Pain Score (VAS): 0 I/O: Intake & Output 04/05/24 04/06/24 04/06/24 23:59 07:59 15:59 Intake Total 300 Balance 300 Patient Feedback: Patient satisfied with anesthetic care.
[2024-04-06 14:17] VITALS: BP 109/61; PULSE 97; RESP 14; O2SAT 100
[2024-04-06 14:27] VITALS: BP 122/83; PULSE 92; RESP 15; O2SAT 100
== END 2024-04-06 14:39 | disposition home or self-care (01) ==
PROVIDERS: Visit Provider Internal Medicine Gastroenterology
PROC: 0DJD8ZZ Inspection of Lower Intestinal Tract, Via Natural or Artificial Opening Endoscopic (ICD-10-PCS; CPT 45378; principal; 2024-04-06 13:00)
DX: Z80.0 Family history of malignant neoplasm of digestive organs (principal); K59.00 Constipation, unspecified; K64.8 Other hemorrhoids
CPT/HCPCS: 45378

== ENCOUNTER 2025-05-29 08:50 | Outpatient (CLI) | payer OTHER, SELFPAY ==
[2025-05-29 09:22] LABS: Hematocrit 40.6 % (37.0-47.0); Hemoglobin 13.7 g/dL (12.0-15.0); Immature Granulocyte Percent A 0.3 % (0-0.5); Lymphocytes Absolute Auto 1.91 K/mm3 (0.9-3.2); Mean Corpuscular HGB Conc 33.7 g/dl (32-36); Mean Corpuscular Hemoglobin 30.9 pg (26-34); Mean Corpuscular Volume 91.6 fl (80-100); Nucleated Red Blood Cells Absolute Auto 0.000 K/mm3 (0.0-0.012); Nucleated Red Blood Cells Perc 0.0 % (0.0-0.2); Platelet Count Result 306 k/mm3 (150-375); Red Blood Count 4.43 M/mm3 (4.2-5.4); White Blood Count 6.2 K/mm3 (4.5-10.0)
[2025-05-29 09:39] LABS: Alanine Aminotransferase 23 U/L (6-35); Albumin Level 4.7 g/dL (3.5-5.1); Alkaline Phosphatase 66 U/L (38-126); Anion Gap 10 mmol/L (4-12); Aspartate Amino Transferase 23 U/L (14-36); Bilirubin,Total 0.8 mg/dL (0.2-1.3); Blood Urea Nitrogen 12 mg/dL (7-17); Calcium 9.3 mg/dL (8.4-10.2); Carbon Dioxide 22 mmol/L (22-30); Chloride 105 mmol/L (98-107); Estimated Glomerular Filt Rate > 60; Glucose 98 mg/dL (65-110); Potassium 4.3 mmol/L (3.4-5.0); Sodium 137 mmol/L (137-145); Total Protein 8.2 g/dL (6.3-8.2)
[2025-05-29 10:12] LABS: Thyroid Stimulating Hormone Reflex 1.770 uIU/mL (0.465-4.68)
== END 2025-05-29 08:51 | disposition home or self-care (01) ==
LOC: ANHLAB 08:51
PROVIDERS: Visit Provider Obstetrics & Gynecology
DX: N92.4 Excessive bleeding in the premenopausal period (principal); N94.6 Dysmenorrhea, unspecified
CPT/HCPCS: 36415; 80053; 84443; 85025